=== PATIENT | male | born 1960 | race Caucasian/White ===

== ENCOUNTER → 2018-03-12 | Outpatient (CLI) | payer OTHER ==
--- NOTE | 2018-03-12 12:40 | XR ---
EXAMINATION TYPE: XR lumbosacral spine min 4V DATE OF EXAM: 03/12/2018 CLINICAL HISTORY: pain COMPARISON: NONE TECHNIQUE: Frontal, lateral, and oblique images of the lumbar spine are obtained. FINDINGS: There are 5 lumbar type vertebral bodies identified. The lumbar spine shows satisfactory alignment without evidence of acute fracture or dislocation. Vertebral body heights are within normal limits. Moderate degenerative disc space narrowing and spondylosis noted. Severe facet joint arthrop athy. The overlying soft tissue appears unremarkable. IMPRESSION: No acute fracture or dislocation is seen in the lumbar spine.ICD 10 NO FRACTURE, INITIAL EVALUATION
== END | disposition home or self-care (01) ==
LOC: RADXRMAIN 12:03
PROVIDERS: ATTEND Family Medicine
DX: M51.36 Other intervertebral disc degeneration, lumbar region (principal)
CPT/HCPCS: 72110

== ENCOUNTER 2018-06-18 12:13 | Emergency (ER) | payer BC, OTHER ==
[2018-06-18 12:32] VITALS: RESP 18; TEMP 98
--- NOTE | 2018-06-18 13:08 | ED ---
General Adult HPI - General Chief complaint: Psychiatric Symptoms Stated complaint: Mental health Time Seen by Provider: 06/18/18 12:30 Source: patient, family, RN notes reviewed Mode of arrival: ambulatory Limitations: no limitations - History of Present Illness Initial comments: This a 57-year-old male who presents emergency department stating that he mentioned to his physician that he wanted to harm 5 people because they were bothering him. Patient states she promised he wouldn't do any does not believe that he will because he is a man of his words per patient denies any suicidal ideations. Patient states he made those comments because he was upset with people but he does not bleed feel hurt anybody because he promised he wouldn't. Patient states he hasn't hurt anybody and some 35 years. Patient denies any physical complaints today. Patient denies chest pain difficulty breathing shortness of breath. Patient denies any recent fever chills or cough. - Related Data Home Medications Medication Instructions Recorded Confirmed ALPRAZolam [Xanax] 0.5 mg PO BID 06/18/18 06/18/18 Albuterol Inhaler [Ventolin Hfa 2 puff INHALATION RT-Q4H PRN 06/18/18 06/18/18 Inhaler] Buprenorphine [Butrans 7.5 MCG/HR] 1 patch TOPICAL Q7D 06/18/18 06/18/18 Colace 50mg 50 mg PO HS 06/18/18 06/18/18 Ergocalciferol [Vitamin D2] 50,000 unit PO Q14D 06/18/18 06/18/18 Escitalopram Oxalate [Lexapro] 20 mg PO DAILY 06/18/18 06/18/18 HYDROcodone/APAP 10-325MG [Salmon 1 tab PO BID 06/18/18 06/18/18 10-325] Metoprolol Tartrate [Lopressor] 12.5 mg PO QAM 06/18/18 06/18/18 Metoprolol Tartrate [Lopressor] 25 mg PO HS 06/18/18 06/18/18 traZODone HCL [Desyrel] 50 mg PO HS 06/18/18 06/18/18 Previous Rx's Medication Instructions Recorded Aspirin EC [Ecotrin Low Dose] 162 mg PO DAILY #60 tablet. 09/24/15 Lisinopril [Zestril] 2.5 mg PO DAILY #30 tab 09/24/15 Simvastatin [Zocor] 20 mg PO HS #30 tab 09/24/15 Allergies Allergy/AdvReac Type Severity Reaction Status Date / Time No Known Allergies Allergy Verified 06/18/18 12:32 Review of Systems ROS Statement: Those systems with pertinent positive or pertinent negative responses have been documented in the HPI. ROS Other: All systems not noted in ROS Statement are negative. Past Medical History Past Medical History: COPD, GERD/Reflux, Hyperlipidemia, Musculoskeletal Disorder Additional Past Medical History / Comment(s): arthritis, degenerative disks, History of Any Multi-Drug Resistant Organisms: None Reported Past Surgical History: Heart Catheterization With Stent, Tonsillectomy Additional Past Surgical History / Comment(s): lumbar laser ablation x2, 3 back epidurals, Past Anesthesia/Blood Transfusion Reactions: No Reported Reaction Date of Last Stent Placement:: 08/11/15 Past Psychological History: Depression Smoking Status: Former smoker Past Alcohol Use History: None Reported Past Drug Use History: Marijuana - Past Family History Father History Unknown: Yes Mother Family Medical History: Cancer, Diabetes Mellitus Additional Family Medical History / Comment(s): breast CA General Exam - General Exam Comments Initial Comments: GENERAL: Patient is well-developed and well-nourished. Patient is nontoxic and well- hydrated and is in no acute distress. ENT: Neck is soft and supple. No significant lymphadenopathy is noted. Oropharynx is clear. Moist mucous membranes. Neck has full range of motion without eliciting any pain. EYES: The sclera were anicteric and conjunctiva were pink and moist. Extraocular movements were intact and pupils were equal round and reactive to light. Eyelids were unremarkable. PULMONARY: Unlabored respirations. Good breath sounds bilaterally. No audible rales rhonchi or wheezing was noted. CARDIOVASCULAR: There is a regular rate and rhythm without any murmurs gallops or rubs. SKIN: Skin is clear with no lesions or rashes and otherwise unremarkable. NEUROLOGIC: Patient is alert and oriented x3. Cranial nerves II through XII are grossly intact. Motor and sensory are also intact. Normal speech, volume and content. Symmetrical smile. MUSCULOSKELETAL: Normal extremities with adequate strength and full range of motion. No lower extremity swelling or edema. No calf tenderness. PSYCHIATRIC: Patient states he wants to hurt some people but he states he will not do it. Patient is not suicidal Limitations: no limitations Course Vital Signs 06/18/18 12:28 Temperature 98 F Pulse Rate 73 Respiratory 18 Rate Blood Pressure 105/79 O2 Sat by Pulse 95 Oximetry Medical Decision Making - Medical Decision Making EPS evaluated the patient and determined the patient could go home I was okay with the patient go home as well because he denied wanting to harm anybody and stated that he gave is worried that he would not hurt anybody. is comfortable with the patient going home. - Lab Data Lab Results 06/18/18 Range/Units 13:25 Urine Opiates Screen Not Detected (NotDetected) Ur Oxycodone Screen Not Detected (NotDetected) Urine Methadone Screen Not Detected (NotDetected) Ur Propoxyphene Screen Not Detected (NotDetected) Ur Barbiturates Screen Not Detected (NotDetected) U Tricyclic Antidepress Not Detected (NotDetected) Ur Phencyclidine Scrn Not Detected (NotDetected) Ur Amphetamines Screen Not Detected (NotDetected) U Methamphetamines Scrn Not Detected (NotDetected) U Benzodiazepines Scrn Detected H (NotDetected) Urine Cocaine Screen Not Detected (NotDetected) U Marijuana (THC) Screen Detected H (NotDetected) Disposition Clinical Impression: Mood disorder Disposition: HOME SELF-CARE Condition: Good Instructions: Mood Disorders (ED) Is patient prescribed a controlled substance at d/c from ED?: No Referrals: Xavi Lane MD [Primary Care Provider] - 1-2 days Time of Disposition: 16:10
[2018-06-18 13:52] LABS: Amphetamine Screen,Urine Not Detected (NotDetected); Barbiturate Screen,Urine Not Detected (NotDetected); Benzodiazepines Screen,Urine Detected (NotDetected); Cocaine Screen,Urine Not Detected (NotDetected); Methadone Screen, Urine Not Detected (NotDetected); Opiate Screen,Urine Not Detected (NotDetected); Oxycodone Screen, Urine Not Detected (NotDetected); Phencyclidine Screen,Urine Not Detected (NotDetected); Tricyclic Antidepressant,Urine Not Detected (NotDetected); Urn Cannabinoid Scrn Detected (NotDetected)
[2018-06-18 16:47] VITALS: BP 114/88; PULSE 64
== END 2018-06-18 17:04 | disposition home or self-care (01) ==
LOC: EC 12:13
DX: F39 Unspecified mood [affective] disorder (principal); J44.9 Chronic obstructive pulmonary disease, unspecified; M19.90 Unspecified osteoarthritis, unspecified site; F32.9 Major depressive disorder, single episode, unspecified; Z87.39 Personal history of other diseases of the musculoskeletal system and connective tissue; Z87.891 Personal history of nicotine dependence; Z95.5 Presence of coronary angioplasty implant and graft; Z79.891 Long term (current) use of opiate analgesic; Z79.899 Other long term (current) drug therapy
CPT/HCPCS: 80306; 82075; 99285

== ENCOUNTER 2024-12-04 05:42 | Day surgery (SDC) | payer BC ==
[2024-12-02 11:34] VITALS: BMI 29.1
[2024-12-04] MEDS ORDERED: ALPRAZolam 0.5 MG TAB PO PRN (06:01)
[2024-12-04] MEDS ORDERED: ALPRAZolam 0.25 MG TAB PO PRN (06:01)
[2024-12-04] MEDS ORDERED: NITROGLYCERIN SL TABS 0.4 MG TAB SUBLINGUAL PRN (06:01)
[2024-12-04] MEDS: ASPIRIN 325 MG TAB PO STA (06:19)
[2024-12-04] MEDS: IV FLUID CONTINUATION 1,000 ML IV ONE (06:20)
[2024-12-04] MEDS: SODIUM CHLORIDE 0.9% 1,000 ML in EMPTY BAG 1 BAG IV SCH (06:20)
[2024-12-04 06:46] VITALS: RESP 16; TEMP 97.9
[2024-12-04 06:48] LABS: Basophils # (A) 0.06 10*3/uL (0.00-0.10); Basophils % (A) 0.5 %; Eosinophils # (A) 0.11 10*3/uL (0.04-0.35); HCT 52.1 % (39.6-50.0); HGB 18.1 g/dL (13.0-17.0); Lymphocytes % (A) 26.3 %; MCH 30.9 pg (27.0-32.0); MCHC 34.7 g/dL (32.0-37.0); MCV 88.9 fL (80.0-97.0); Mean Platelet Volume 9.3 fL (9.5-12.2); Neutrophils # (A) 7.41 10*3/uL (1.80-7.70); Neutrophils % (A) 64.9 %; Platelet Count 331 10*3/uL (140-440); RBC 5.86 10*6/uL (4.40-5.60); RDW 12.3 % (11.5-14.5); WBC 11.41 10*3/uL (4.50-10.00)
[2024-12-04 07:01] LABS: African American GFR (CKD) >90 (>60 ml/min/1.73 sqM); Anion Gap 10 mmol/L; Blood Urea Nitrogen 12 mg/dL (9-20); Calcium 9.8 mg/dL (8.4-10.2); Carbon Dioxide 24 mmol/L (22-30); Chloride 104 mmol/L (98-107); Glucose 115 mg/dL (74-99); Non-African American GFR(CKD) 88 (>60 ml/min/1.73 sqM); Potassium 4.2 mmol/L (3.5-5.1); Sodium 138 mmol/L (137-145)
[2024-12-04] MEDS: HEPARIN SODIUM,PORCINE 10,000 UNIT in SODIUM CHLORIDE 0.9% 1,000 ML IRRIGATION PRN (07:31)
[2024-12-04] MEDS: HEPARIN SODIUM,PORCINE (1 ML) 2,500 UNIT in SODIUM CHLORIDE 0.9% 250 ML IRRIGATION PRN (07:31)
[2024-12-04] MEDS: MIDAZOLAM 2 MG/2 ML VIAL IVP ONE ×2 (07:47→08:01)
[2024-12-04] MEDS: LIDOCAINE 1% INJ 10MG/ML (20 ML MDV) SQ ONE (07:56)
[2024-12-04] MEDS: PRASUGREL 10 MG TAB PO ONE (08:01)
[2024-12-04] MEDS: HEPARIN SODIUM 1,000 UN/ML (10ML VL) IV ONE (08:04)
[2024-12-04] MEDS: fentaNYL (PF) 50 MCG/1 ML VIAL IVP ONE (08:12)
[2024-12-04] MEDS: IOPAMIDOL-370 100ML BTL INJ ONE (08:18)
[2024-12-04] MEDS ORDERED: RX INFO: IV CONTRAST WAS GIVEN 1 EACH MISC MISCELLANE PRN (08:23)
--- NOTE | 2024-12-04 08:29 | P.PCN ---
Date of Procedure: 12/04/24 Operative Findings: Cardiac procedure report Performing physician Saul Figueroa MD Procedure performed 1. Selective left coronary angiogram 2. IFR of the left circumflex coronary artery 3. 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 He was brought today to undergo further evaluation Approach The right common femoral artery Complication None Level of sedation Moderate with sedation length of 25 minutes Procedure description After obtaining informed consent the patient was brought to the cardiac Film Washer with the right common femoral artery was cannulated using micropuncture technique under ultrasound guidance the micropuncture wire passed easily then I placed a 6 [place] 11 cm sheath at the right common femoral artery. 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 Looking at the angiogram we decided to do an IFR of the left circumflex. After zeroing the Dobler wire and equalized in between the Dobler wire and guiding catheter which was EBU 3.75 guiding catheter I did wired the left circumflex initially using a whisper wire because the left circumflex was extremely tortuous and calcified and subsequently I wired with the Dobler wire with IFR came to be at 0.90. At that point we decided to stop because the lesion was not flow-limiting. The procedure was completed with no complication. 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 Fong
[2024-12-04] MEDS: SODIUM CHLORIDE 0.9% 1,000 ML IV SCH (09:03)
[2024-12-04] MEDS ORDERED: MORPHINE SULFATE 2 MG/ML SYRINGE IVP PRN (09:52)
[2024-12-04] MEDS: MORPHINE SULFATE 4 MG/ML SYRINGE IVP PRN (09:58)
[2024-12-04 11:30] VITALS: PULSE 55
[2024-12-04] MEDS ORDERED: MORPHINE SULFATE 2 MG/ML SYRINGE IVP STA (12:48)
[2024-12-04 15:31] VITALS: BP 165/82
[2024-12-11] MEDS: MIDAZOLAM 1 MG/ML 5 ML VIAL IV STA (07:01)
== END 2024-12-04 16:27 | disposition home or self-care (01) ==
LOC: CATHCVL 05:42
PROVIDERS: ATTEND Internal Medicine Interventional Cardiology
DX: I25.710 Atherosclerosis of autologous vein coronary artery bypass graft(s) with unstable angina pectoris (principal); I25.110 Atherosclerotic heart disease of native coronary artery with unstable angina pectoris; I25.84 Coronary atherosclerosis due to calcified coronary lesion; I10 Essential (primary) hypertension; E78.2 Mixed hyperlipidemia; F17.210 Nicotine dependence, cigarettes, uncomplicated; Z79.82 Long term (current) use of aspirin; Z79.51 Long term (current) use of inhaled steroids; Z79.899 Other long term (current) drug therapy
CPT/HCPCS: 93454; 93799; 80048; 85025; C1769 ×2; C1887; C1894; J2250; J2270; J1644 ×3; J2003; Q9967; J3010